=== PATIENT | female | born 1975 ===

== ENCOUNTER 2020-10-26 11:45 | Inpatient (IN) | payer OTHER ==
[~2020-10-26] VITALS: Ht 160 cm; Wt 59.4 kg
[2020-11-02] MEDS ORDERED: CLOTRIMAZOLE28 GM (08:09)
[2020-11-04] MEDS ORDERED: KETO10TA2 PO (07:47)
[2020-11-04] MEDS ORDERED: CODE1TAB37 PO (07:47)
== END 2020-11-04 14:21 | disposition home or self-care (01) | DRG 743 ==
LOC: OB/GYN 11-02 05:30 → O/R 11-02 05:30 → SURH 11-02 07:00 → OB/GYN 11-02 10:52 → SURH 11-02 11:45 → OB/GYN 11-04 14:21
PROVIDERS: ADMIT Obstetrics & Gynecology Maternal & Fetal Medicine; ATTEND Obstetrics & Gynecology Maternal & Fetal Medicine
PROC: 0UB70ZZ Excision of Bilateral Fallopian Tubes, Open Approach (ICD-10-PCS; 2020-11-02)
PROC: 0UT90ZL Resection of Uterus, Supracervical, Open Approach (ICD-10-PCS; principal; 2020-11-02 07:00)
DX: N80.0 Endometriosis of uterus (principal); D25.1 Intramural leiomyoma of uterus; D25.2 Subserosal leiomyoma of uterus; D28.2 Benign neoplasm of uterine tubes and ligaments